=== PATIENT | male | born 1990 | race African-American/Black ===

== ENCOUNTER 2018-08-28 11:54 | Emergency (ER) | payer OTHER ==
[~2018-08-28] VITALS: Ht 172.7 cm; Wt 105.0 kg
[2018-08-28 11:57] VITALS: Ht 172.7 cm; Wt 105.0 kg
[2018-08-28] MEDS ORDERED: LORAZEPAM 1 MG TAB PO ONE (14:00)
[2018-08-28 16:17] VITALS: BP 142/74; PULSE 79; RESP 18
--- NOTE | 2018-08-28 21:23 | ERD ---
ER Documentation Chief Complaint Chief Complaint C/O URINARY RETENTION FOR A WEEK. DENIES DYSURIA OR BLOOD IN URINE. HPI 28-year-old male with past medical history of urinary retention presents to the emergency department complaining of intermittent urinary retention for the past 1 week. He reports decreased urinary output and a feeling of bladder fullness. He denies any perennial or prostate pain. He has history of similar symptoms in the past and had Robles catheter placed in went to see urologist, however they were unable to identify etiology for his symptoms. He denies any flank pain, hematuria, abdominal pain, dysuria, fevers, chills, back pain, or other symptoms at this time. ROS All systems reviewed and are negative except as per history of present illness. PMhx/Soc History of Surgery: No Anesthesia Reaction: No Hx Neurological Disorder: No Hx Respiratory Disorders: No Hx Cardiac Disorders: No Hx Psychiatric Problems: No Hx Miscellaneous Medical Probl: Yes (Urinary retention) Hx Alcohol Use: No Hx Substance Use: No Hx Tobacco Use: No Smoking Status: Never smoker FmHx Family History: No diabetes Physical Exam Vitals Vital Signs Date Temp Pulse Resp B/P (MAP) Pulse Ox O2 O2 Flow FiO2 Time Delivery Rate 08/28/18 98.3 79 18 142/74 100 Room Air 16:17 (96) 08/28/18 98.6 85 18 155/87 100 11:57 (109) Physical Exam Const: No acute distress Head: Atraumatic Eyes: Normal Conjunctiva ENT: Normal External Ears, Nose and Mouth. Neck: Full range of motion. No meningismus. Resp: Clear to auscultation bilaterally Cardio: Regular rate and rhythm, no murmurs Abd: Soft, non tender, non distended. Normal bowel sounds. No rebound tenderness or guarding. No McBurney's point tenderness. : Digital rectal exam was deferred as to not spread possible acute prostatitis. Skin: No petechiae or rashes Back: No midline or flank tenderness Ext: No cyanosis, or edema Neur: Awake and alert Psych: Normal Mood and Affect Result Diagram: 08/28/18 1514 08/28/18 1514 Results 24 hrs Laboratory Tests Test 08/28/18 14:26 08/28/18 15:14 Urine Color YELLOW Urine Clarity SLIGHTLY CLOUDY Urine pH 7.0 Urine Specific [place] 1.018 Urine Ketones NEGATIVE mg/dL Urine Nitrite NEGATIVE mg/dL Urine Bilirubin NEGATIVE mg/dL Urine Urobilinogen NEGATIVE mg/dL Urine Leukocyte Esterase NEGATIVE Carlos/ul Urine Microscopic RBC 2 /HPF Urine Microscopic WBC 3 /HPF Urine Hemoglobin NEGATIVE mg/dL Urine Glucose NEGATIVE mg/dL Urine Total Protein NEGATIVE mg/dl White Blood Count 8.9 10^3/ul Red Blood Count 5.57 10^6/ul Hemoglobin 15.5 g/dl Hematocrit 48.7 % Mean Corpuscular Volume 87.4 fl Mean Corpuscular Hemoglobin 27.8 pg Mean Corpuscular Hemoglobin Concent 31.8 g/dl Red Cell Distribution Width 13.9 % Platelet Count 262 10^3/UL Mean Platelet Volume 9.3 fl Immature Granulocytes % 0.500 % Neutrophils % 67.6 % Lymphocytes % 22.0 % Monocytes % 7.8 % Eosinophils % 1.8 % Basophils % 0.3 % Nucleated Red Blood Cells % 0.0 /100WBC Immature Granulocytes # 0.040 10^3/ul Neutrophils # 6.0 10^3/ul Lymphocytes # 2.0 10^3/ul Monocytes # 0.7 10^3/ul Eosinophils # 0.2 10^3/ul Basophils # 0.0 10^3/ul Nucleated Red Blood Cells # 0.0 10^3/ul Sodium Level 141 mmol/L Potassium Level 4.3 mmol/L Chloride Level 104 mmol/L Carbon Dioxide Level 28 mmol/L Anion Gap 9 Blood Urea Nitrogen 11 mg/dl Creatinine 1.08 mg/dl Est Glomerular Filtrat Rate mL/min > 60 mL/min Glucose Level 96 mg/dl Calcium Level 9.4 mg/dl Total Bilirubin 0.5 mg/dl Direct Bilirubin 0.00 mg/dl Indirect Bilirubin 0.5 mg/dl Aspartate Amino Transf (AST/SGOT) 25 IU/L Alanine Aminotransferase (ALT/SGPT) 16 IU/L Alkaline Phosphatase 65 IU/L Total Protein 8.1 g/dl Albumin 4.5 g/dl Globulin 3.60 g/dl Albumin/Globulin Ratio 1.25 Current Medications Medications Dose Sig/Noman Start Time Status Last (Trade) Ordered Route PRN Stop Time Admin Dose Reason Admin Lorazepam 1 mg ONCE ONCE 08/28/18 DC (Ativan) PO 14:00 08/28/18 14:01 Procedures/MDM 28-year-old male presents to the emergency department complaining of urinary retention. Robles catheter was placed in approximately 150 cc of urine was obtained by nursing staff. Unclear etiology of the patient's symptoms at this time however I have low suspicion for acute prostatitis, renal dysfunction, bladder mass, or other emergent conditions. CBC and CMP showed no significant acute abnormalities. Patient was advised to have 24 to 48-hour follow-up with urologist and return to the department immediately for any new or worsening or concerning symptoms he understands and agrees with plan. No evidence of emergent pathology at time of discharge. Patient's blood pressure was elevated (>120/80) but appears stable without evidence of hypertension emergency or urgency. The patient is to follow-up and pursue outpatient monitoring and therapy with their primary care physician within 1 week and return immediately if they have any new, worsening, or concerning symptoms. Departure Diagnosis: Primary Impression: Urinary retention Condition: Fair Patient Instructions: Urinary Retention, Male Referrals: [facility] YOU HAVE RECEIVED A MEDICAL SCREENING EXAM AND THE RESULTS INDICATE THAT YOU DO NOT HAVE A CONDITION THAT REQUIRES URGENT TREATMENT IN THE EMERGENCY DEPARTMENT. FURTHER EVALUATION AND TREATMENT OF YOUR CONDITION CAN WAIT UNTIL YOU ARE SEEN IN YOUR DOCTORS OFFICE WITHIN THE NEXT 1-2 DAYS. IT IS YOUR RESPONSIBILITY TO MA KE AN APPOINTMENT FOR FOLOW-UP CARE. IF YOU HAVE A PRIMARY DOCTOR --you should call your primary doctor and schedule an appointment IF YOU DO NOT HAVE A PRIMARY DOCTOR YOU CAN CALL OUR PHYSICIAN REFERRAL HOTLINE AT IF YOU CAN NOT AFFORD TO SEE A PHYSICIAN YOU CAN CHOSE FROM THE FOLLOWING [facility] [address] [facility] [address] [facility]. [facility] [address] [facility] [facility] [address] [facility]. [facility] [address] [facility]. [facility] [address] Additional Instructions: SPECIALIST: YOU HAVE A MEDICAL CONDITION WHICH REQUIRES YOU TO SEE A SPECIALIST WITHIN THE NEXT 1-2 DAYS. PLEASE FOLLOW UP WITH YOUR PRIMARY PHYSIC XIOMY FOR REFFERAL.IF YOU DO NOT HAVE A PRIMARY CARE PHYSICIAN AND/OR YOU CAN NOT AFFORD TO SEE A PHYSICIAN THE FOLLOWING RESOURCES HAVE BEEN SUPPLIED TO YOU. IT IS YOUR RESPONSIBILITY TO BE SEEN BY THE SPECIALIST: UROLOGIST WENDY PRICE PA-C Aug 28, 2018 21:23
== END 2018-08-28 16:23 | disposition home or self-care (01) ==
LOC: FTE 11:54
DX: R33.9 Retention of urine, unspecified (principal)
CPT/HCPCS: 80053; 81001; 81003; 85025